=== PATIENT | male | born 1985 | race Caucasian/White ===

== ENCOUNTER 2019-05-10 06:59 | Day surgery (SDC) | payer BC ==
[2019-05-04 16:13] VITALS: BMI 27.1
[~2019-05-10 06:59] MED LIST: DEXAMETHASONE SOD PHOSPHATE 10 MG/ML 1 ML VIAL IV ONE; LACTATED RINGERS 1,000 ML IV SCH; LIDOCAINE 1% 20 ML VIAL (10MG/ML) FOR IV START INTRADERMA PRN; MIDAZOLAM 2 MG/2 ML VIAL IV PRN; ONDANSETRON 4 MG/2 ML VIAL IVP ONE; SCOPOLAMINE 1.5MG/72HR PATCH TRANSDERM ONE; ceFAZolin IN SWFI 2 GM/20 ML SYRINGE IVP ONE
[2019-05-10] MEDS ORDERED: NEOSTIGMINE 1 MG/ML 10 ML VIAL ONE (08:18)
[2019-05-10] MEDS ORDERED: fentaNYL (PF) 50 MCG/ML 2 ML AMP ONE (08:18)
[2019-05-10] MEDS ORDERED: KETAMINE 10 MG/ML 20 ML VIAL ONE (08:18)
[2019-05-10] MEDS ORDERED: SUCCINYLCHOLINE CHLORIDE 100 MG/5 ML SYR IV ONE (08:18)
[2019-05-10] MEDS ORDERED: MIDAZOLAM 2 MG/2 ML VIAL ONE (08:18)
[2019-05-10] MEDS ORDERED: ROCURONIUM BROMIDE 10 MG/ML 10 ML VIAL IV ONE (08:18)
[2019-05-10] MEDS ORDERED: LIDOCAINE 1% INJ 10MG/ML (20 ML MDV) ONE (08:18)
[2019-05-10] MEDS ORDERED: GLYCOPYRROLATE 0.2 MG/ML 2 ML VIAL ONE (08:18)
[2019-05-10] MEDS ORDERED: PROPOFOL 10 MG/ML 20 ML VIAL IV ONE (08:18)
[2019-05-10] MEDS ORDERED: LIDOCAINE 1% INJ 10MG/ML (20 ML MDV) SQ ONE (08:48)
[2019-05-10] MEDS ORDERED: LACTATED RINGERS 1,000 ML IV ONE ×2 (09:07→11:54)
[2019-05-10] MEDS ORDERED: methylPREDNISolone ACETATE 80 MG/ML 1 ML VIAL INJ ONE (09:23)
[2019-05-10] MEDS ORDERED: ONDANSETRON 4 MG/2 ML VIAL IVP ONE (09:37)
[2019-05-10] MEDS ORDERED: BENZOCAINE/MENTHOL LOZENG 1 EACH LOZENGE MUCOUS MEM PRN (09:37)
[2019-05-10] MEDS ORDERED: HYDROmorphone 0.5 MG/0.5 ML SYRINGE IVP PRN (09:37)
[2019-05-10] MEDS ORDERED: HYDROmorphone 1 MG/ML 1 ML SYRINGE IVP PRN (09:37)
[2019-05-10] MEDS ORDERED: HYDROcodone/APAP 5-325MG 1 EACH TAB PO PRN ×2 (09:37)
[2019-05-10] MEDS ORDERED: IBUPROFEN 800 MG TAB PO PRN (09:38)
[2019-05-10] MEDS ORDERED: IBUPROFEN 200 MG TAB PO PRN (09:39)
[2019-05-10 10:07] VITALS: TEMP 98.4
[2019-05-10] MEDS: HYDROmorphone 0.5 MG/0.5 ML SYRINGE IVP PRN ×4 (10:09→10:39)
--- NOTE | 2019-05-10 10:22 | XR ---
Fluoroscopy History: Lumbar laminectomy and discectomy Lumbar Laminectomy discectomy performed by Dr. Temple. 2 sec fl time. 1 image scanned.
[2019-05-10 10:26] VITALS: RESP 16
[2019-05-10] MEDS ORDERED: HYDROcodone/APAP 5-325MG 1 EACH TAB PO ONE (11:49)
[2019-05-10] MEDS ORDERED: hydrALAZINE HCL 20 MG/ML 1 ML VIAL IV ONE (11:49)
[2019-05-10] MEDS ORDERED: KETOROLAC 30 MG/ML 1 ML VIAL IVP SCH (12:00)
[2019-05-10 12:13] VITALS: BP 163/96; PULSE 90
--- NOTE | 2019-05-10 15:50 | OP ---
OPERATIVE REPORT DATE OF SURGERY: 05/10/2019 OPERATIVE NOTE: PREOP DIAGNOSES: 1. Herniated nucleus pulposus, L5-S1. 2. Right lower extremity radiculopathy. 3. Right lower extremity weakness. 4. Foraminal stenosis, L5-S1. 5. Low back pain. 6. Right lower extremity pain. POSTOP DIAGNOSES: 1. Herniated nucleus pulposus, L5-S1. 2. Right lower extremity radiculopathy. 3. Right lower extremity weakness. 4. Foraminal stenosis, L5-S1. 5. Low back pain. 6. Right lower extremity pain. PROCEDURE PERFORMED: 1. Laminectomy decompression L5-S1. 2. Diskectomy for decompression L5-S1. 3. Use of fluoroscopic guidance. SURGEONS: Dr. Temple. ARMATURE BALANCER: PENG [place]. ANESTHESIA: General anesthesia. COMPLICATIONS: None apparent. ESTIMATED BLOOD LOSS: Approximately 30 mL. SPECIMEN: None. FLUOROSCOPY: Time is approximately 10 seconds. COMPLICATIONS: None apparent. DISPOSITION: Is to recovery room in good stable condition. OPERATIVE INDICATIONS: The patient is a 33-year-old male who has been having severe back pain and lower extremity pain for the past 3 years, however, he has been having significant worsening over the past several months. He has been having significant disability with activities and ability to ambulate with pain particularly down his right lower extremity over an S1 distribution. He was noting some increased pain and some weakness in his right lower extremity as well. He continued to have pain over right lower extremity S1 distribution. He had been through extensive conservative treatment with therapy, medications and interventional pain management. However, was not having lasting benefit despite aggressive conservative care. Different treatment options including surgical intervention were explained to him. Risks and complications of surgery including, but not limited to risk of bleeding, risk of infection, risk of need for further surgery, risk of decreased loss of motion, loss of function/function, dural tear, nerve damage, paralysis, heart attack and blindness, , as well as the fact that surgery may not alleviate his symptoms, were explained to him at length. All his questions were answered to the best of our ability in language he could understand. Patient elected to proceed with surgical intervention. Signed informed consent. OPERATIVE SUMMARY: After obtaining informed consent, evaluation by anesthesia, preop medical and evaluation and clearance, the patient was identified in preoperative Holding Area and surgical site was marked. He was given prophylactic IV antibiotics, brought to the operating and was sedated, intubated by anesthesia in standard fashion without any complications. Once the airway and C-spine were secured, he was gently rolled into prone position onto a well-padded, well molded Ray frame being careful to pad any bony prominences, pressure points keeping his head and neck in good neutral alignment and position. Once he is well positioned on the table. His back was prepped and draped in normal standard fashion, appropriate protocol. Appropriate time-out was completed. We were able to proceed with surgery. The C-arm guidance was utilized to establish appropriate level at L5-S1. A skin incision was made approximately 2-1/2 cm in length over the L5-S1 space at the midline. Dissection taken down to the fascia which was split in midline and taken down further to the inner laminar space at L5-S1. The intraoperative C-arm was again utilized to establish appropriate level and with the appropriate level positively confirmed with a marker at the L5-S1 interlaminar space, I was able to proceed with a laminectomy. Laminectomy was performed with combination of curette and Kerrison rongeurs and a high-speed bur. The ligamentum flavum was also taken down as well as a small portion of the medial facet to gain further access to the epidural space and the disc space. I was careful to maintain good stability without causing instability or removal of the entire facet. A portion of the ligamentum flavum was taken down. There was significant fatty tissue which was cauterized with bipolar cauterization and I was able to expose the dura and the traversing nerve roots. Note was made of obvious compression and distortion of the traversing nerve root. There was significant scar formation along the traversing nerve root as well. It was quite difficult to mobilize the nerve root and to free up the scar tissue from the disc itself. There was evidence of a large extruded disc fragment and a rent at the right paracentral area of the disc itself. I was able to establish an annulotomy and remove significant loose disc and loose disc fragments. We took meticulous care to free up the nerve root from the scar tissue around the disc and I was able to do that and remove any extruded disc and significant disc material that was loose within the disc itself. Any stable fragments of disc and anulus were left intact. The nerve root was freely mobile without any further evidence of compression or distortion. Any disc fragments and loose fragments were removed. There was no evidence of any dural tear or leak, and good hemostasis was maintained. With the nerve root freely mobile and good decompression noted with no further loose fragments, we we able to proceed with closure. The wound was copiously irrigated and suctioned dry as it had been done periodically throughout the case. The peridural area was infiltrated with 40 mg of Depo-Medrol. The fascial layer was closed with #1 Vicryl. Subcutaneous tissue was closed with 2-0 Vicryl. Subcuticular tissue was closed with 4-0 Vicryl. Wound is clean, dry, dressed with Mastisol, Steri-Strips, Telfa, and Tegaderm. The drapes were broken down. Patient was gently rolled back supine position onto his stretcher, woken up by anesthesia, extubated appropriately and brought to recovery room in good stable condition where he will be able to be discharged home today once he meets appropriate discharge instructions and discharge status after the postanesthesia care unit. He is given appropriate discharge instructions and we will plan to see him back in approximately 2 weeks time for recheck evaluation or sooner if he is having any problems. MMODL / IJN: [id number] /
[2019-05-10] MEDS ORDERED: ceFAZolin IN SWFI 2 GM/20 ML SYRINGE IVP SCH (16:00)
[2019-05-11] MEDS ORDERED: FLUoxetine HCL 20 MG CAP PO SCH (09:00)
== END 2019-05-10 12:17 | disposition home or self-care (01) ==
LOC: OR 06:59
PROVIDERS: ATTEND Orthopaedic Surgery Orthopaedic Surgery of the Spine
DX: M51.17 Intervertebral disc disorders with radiculopathy, lumbosacral region (principal); M48.07 Spinal stenosis, lumbosacral region; I10 Essential (primary) hypertension; F32.9 Major depressive disorder, single episode, unspecified; F17.210 Nicotine dependence, cigarettes, uncomplicated; Z97.2 Presence of dental prosthetic device (complete) (partial); Z79.1 Long term (current) use of non-steroidal anti-inflammatories (NSAID); Z79.891 Long term (current) use of opiate analgesic; Z79.899 Other long term (current) drug therapy; Z97.3 Presence of spectacles and contact lenses
CPT/HCPCS: 63030; 72020; J2250; J0360; J1040; J2710; J2405; J2001; J3010; J1885; J0330; J2704; J1170; J0690

== ENCOUNTER 2019-07-17 12:55 | Day surgery (SDC) | payer BC ==
[~2019-07-17 12:55] MED LIST changes: +BACITRACIN 50,000 UNIT, POLYMYXIN B 500,000 UNIT in SODIUM CHLORIDE 0.9% IRRIGATIO 1,00... IRRIGATION ONE; -DEXAMETHASONE SOD PHOSPHATE 10 MG/ML 1 ML VIAL IV ONE; -LACTATED RINGERS 1,000 ML IV SCH; -LIDOCAINE 1% 20 ML VIAL (10MG/ML) FOR IV START INTRADERMA PRN; -MIDAZOLAM 2 MG/2 ML VIAL IV PRN; -ONDANSETRON 4 MG/2 ML VIAL IVP ONE; -SCOPOLAMINE 1.5MG/72HR PATCH TRANSDERM ONE; -ceFAZolin IN SWFI 2 GM/20 ML SYRINGE IVP ONE
[2019-07-17] MEDS ORDERED: LACTATED RINGERS 1,000 ML IV ONE ×3 (13:50→15:28)
[2019-07-17] MEDS ORDERED: LIDOCAINE 1% 20 ML VIAL (10MG/ML) FOR IV START INTRADERMA ONE (13:50)
[2019-07-17] MEDS ORDERED: fentaNYL (PF) 50 MCG/ML 2 ML AMP IVP ONE (13:51)
[2019-07-17] MEDS ORDERED: ONDANSETRON 4 MG/2 ML VIAL IVP ONE (13:51)
[2019-07-17] MEDS ORDERED: MIDAZOLAM (PF) 2 MG/2 ML VIAL IVP ONE ×2 (13:56)
[2019-07-17] MEDS ORDERED: ROCURONIUM BROMIDE 10 MG/ML 10 ML VIAL IV ONE (14:40)
[2019-07-17] MEDS ORDERED: DEXAMETHASONE SOD PHOS (MDV) 100 MG/10 ML VIAL ONE (14:40)
[2019-07-17] MEDS ORDERED: NEOSTIGMINE 1 MG/ML 10 ML VIAL ONE (14:40)
[2019-07-17] MEDS ORDERED: PROPOFOL 10 MG/ML 20 ML VIAL IV ONE (14:40)
[2019-07-17] MEDS ORDERED: MIDAZOLAM 2 MG/2 ML VIAL ONE (14:40)
[2019-07-17] MEDS ORDERED: LIDOCAINE 1% INJ 10MG/ML (20 ML MDV) ONE (14:40)
[2019-07-17] MEDS ORDERED: GLYCOPYRROLATE 0.2 MG/ML 2 ML VIAL ONE (14:40)
[2019-07-17] MEDS ORDERED: fentaNYL (PF) 50 MCG/ML 2 ML AMP ONE (14:40)
[2019-07-17] MEDS ORDERED: SUCCINYLCHOLINE CHLORIDE 100 MG/5 ML SYR IV ONE (14:40)
[2019-07-17] MEDS ORDERED: KETAMINE 10 MG/ML 20 ML VIAL ONE (14:40)
[2019-07-17] MEDS ORDERED: LIDOCAINE 0.5%-EPI 1:200,000 50 ML VIAL SQ ONE (15:19)
[2019-07-17] MEDS ORDERED: THROMBIN (BOVINE) 5,000 UNIT VIAL TOPICAL ONE (15:23)
[2019-07-17] MEDS ORDERED: GELATIN SPONGE,ABSORB (LARGE) 1 EACH SPONGE TOPICAL ONE (15:23)
[2019-07-17] MEDS ORDERED: methylPREDNISolone ACETATE 80 MG/ML 1 ML VIAL INJ ONE (15:38)
[2019-07-17] MEDS ORDERED: KETOROLAC 30 MG/ML 1 ML VIAL IVP PRN (15:55)
[2019-07-17] MEDS ORDERED: HYDROcodone/APAP 5-325MG 1 EACH TAB PO PRN ×3 (15:55→15:56)
[2019-07-17] MEDS ORDERED: HYDROmorphone 0.5 MG/0.5 ML SYRINGE IVP PRN (15:55)
[2019-07-17] MEDS ORDERED: HYDROmorphone 1 MG/ML 1 ML SYRINGE IVP PRN (15:55)
[2019-07-17] MEDS ORDERED: BENZOCAINE/MENTHOL LOZENG 1 EACH LOZENGE MUCOUS MEM PRN (15:55)
[2019-07-17] MEDS ORDERED: ONDANSETRON 4 MG/2 ML VIAL IVP PRN (15:55)
[2019-07-17] MEDS ORDERED: DIAZEPAM 5 MG TAB PO PRN (15:56)
[2019-07-17] MEDS ORDERED: IBUPROFEN 600 MG TAB PO PRN (15:56)
[2019-07-17] MEDS ORDERED: SODIUM CHLORIDE 0.9% 1,000 ML IV SCH (16:00)
--- NOTE | 2019-07-17 16:04 | P.OP ---
Date of Procedure: 07/17/19 Preoperative Diagnosis: Recurrent herniated nucleus pulposus L5-S1, severe right lower extremity radiculopathy, right lower extremity weakness, history of laminectomy decompression and discectomy L5-S1 Postoperative Diagnosis: Same Anesthesia: GETA Pathology: none sent Condition: stable Disposition: PACU Description of Procedure: BRIEF OPERATIVE NOTE Preoperative Diagnosis:Recurrent herniated nucleus pulposus L5-S1, severe right lower extremity radiculopathy, right lower extremity weakness, history of laminectomy decompression and discectomy L5-S1 Postoperative Diagnosis:Recurrent herniated nucleus pulposus L5-S1, severe right lower extremity radiculopathy, right lower extremity weakness, history of laminectomy decompression and discectomy L5-S1 Procedure: Revision Laminectomy and decompression L5-S1 Revision Discectomy for decompression L5-S1 Use of fluoroscopic guidance Surgeon: Dr. Temple Registered Nurse Float Pool: Domenic KHOURY who is present throughout the entire the case persistence during positioning, dissection, exposure, visualization, and all crucial elements of the case as well as closure. Anesthesia: General anesthesia per Dr. Palacio Estimated blood loss: Approximately 50 mL Complications: None apparent Components implanted: None Disposition: To recovery room in good stable condition. OPERATIVE INDICATIONS The patient has been having severe issues in their lower back and lower extremities on the right side. He's been having profound debility due to the pain over the past 2 weeks without any resolution despite conservative management. He's has weakness in his right lower extremity as well. He had undergone laminectomy decompression and discectomy for large extruded disc herniation at L5-S1 several months ago and after that surgery initially did well. He was having significant relief of his symptoms and improvement in his lower extremity symptoms. However over the past couple weeks she has been having worsening symptoms and has been having profound troubles over the past week. He had aggressive conservative care and underwent repeat imaging of his lumbar spine which showed recurrent disc herniation with severe right foraminal stenosis which correlate well with his back and lower extremity pain . The patient has been through conservative treatment. He was unable to perform any activities and had great difficulty with even trying to ride in a car sit or trying to get comfortable at home. We discussed various treatment options including surgery, and the patient wishes to proceed with surgery We discussed the risk, patient's alternatives and benefits of surgery including but not limited to, risk of bleeding risk of infection, risk of need for further surgery, risk of decreased, loss of motion, loss of function, nerve damage, paralysis, heart attack, blindness and . OPERATIVE SUMMARY After discussing all the risks, patient alternatives and benefits at length, the patient elected to proceed with surgical intervention, signed informed consent, and presented for their procedure. The patient was seen and examined in the preoperative holding area and the surgical site was marked. The patient was given antibiotics and brought to the operating room. The patient was sedated and intubated by anesthesia in standard fashion. The patient was positioned on to the operating room table in a prone position on the appropriate frame which was well-padded and well molded. We were careful to pad any bony prominences and pressure points. We were careful to maintain the pat ient's cervical spine and good neutral alignment and position throughout. The patient was prepped and draped in a normal standard fashion. An appropriate timeout and keystone protocol performed. We were able to proceed with the surgery. Fluoroscopy was utilized to establish the appropriate level. The local wound area was infiltrated with local anesthetic. An incision was made at the midline longitudinally over the appropriate levels of L5-S1 utilizing the prior incision at that level and extending it a small amount cephalad.. Dissection was taken down subcutaneously to the level of the fascia which was split midline. Dissection was taken over the lamina. Intraoperative fluoroscopy was taken which showed a marker at the appropriate level at L5-S1. With the appropriate level positively confirmed, we were able to proceed with laminectomy. There was some scar tissue formation at the L5-S1 interlaminar space which had been meticulously be taken down. The wound was copiously irrigated and suctioned dry as had been done periodically throughout the case. I performed a laminectomy with a combination of curettes and a high- speed bur and Kerrison rongeurs. I extended the A small medial facetectomy again to enable further access. A partial foraminotomy was also performed. I was careful not to remove the significant portion of the facet joint to maintain some stability at the level. I had to take down portions of scar tissue at the intralaminar space. Portions of the ligamentum flavum were taken down to expose the dura and traversing nerve root. There was significant tension at the dura and I was able to try to mobilize the dura and the traversing nerve root away from the scar tissue. I was able to mobilize the traversing nerve root and gain access to the disc space. Note was made of obvious compression from the disc. There is evidence of very large extruded disc fragments. Portions of cartilaginous endplate had been extruded and a massive portion of fibrocartilage had extruded as well which was contributing to the severe stenosis. I was able to remove these large portions of extruded disc material which gave excellent relief of the tension at the ner ve root and dura. Protecting the soft tissue structures, I was able to gain access to the remainder of the interbody body disc area through the prior establish annulotomy and disc rent. I was able to perform discectomy and remove any extruded disc fragments and any loose fragments from within the disc itself. There is some significant disc loss noted. I tried to preserve the disc annulus that appeared stable. There were no further extruded fragments noted. There is no evidence of dural tear or leak. Good hemostasis maintained. The wound was copiously irrigated and suctioned dry. Good decompression and discectomy was noted. We were able to proceed with closure. The fascia was closed for a watertight closure. The subcuticular tissue was closed with absorbable suture. The wound was cleaned and dried and dressed with the appropriate dressing. The drapes were broken down. The patient was gently rolled back onto their hospital bed being careful to maintain their cervical spine and good neutral alignment and position. They were woken up by anesthesia, extubated, and brought to the recovery room in good stable condition. The patient will be admitted to the hospital for observation and for appropriate postoperative care, medical management and monitoring. We will continue to follow them closely about the postoperative course.
--- NOTE | 2019-07-17 16:05 | FL ---
Fluoroscopy History: needle placement Needle placement. 3 secs fluoro. 1 image scanned.
[2019-07-17 16:18] VITALS: RESP 16; TEMP 97.5
[2019-07-17] MEDS: hydrALAZINE HCL 20 MG/ML 1 ML VIAL IVP ONE ×2 (16:40→17:20)
[2019-07-17] MEDS ORDERED: ENALAPRILAT 1.25 MG/ML 1 ML VIAL IVP ONE (17:07)
[2019-07-17] MEDS: HYDROmorphone 1 MG/ML 1 ML SYRINGE IVP ONE ×2 (17:20→17:25)
[2019-07-17] MEDS ORDERED: DIAZEPAM 5 MG TAB PO STA (18:31)
[2019-07-17] MEDS ORDERED: DIAZEPAM 5 MG TAB PO ONE (18:34)
[2019-07-17] MEDS ORDERED: hydrALAZINE HCL 20 MG/ML 1 ML VIAL IVP ONE (19:08)
[2019-07-17] MEDS ORDERED: LABETALOL 5 MG/ML VIAL MDV IVP ONE ×2 (19:30→19:31)
[2019-07-17 19:36] VITALS: BP 141/90; PULSE 100
[2019-07-18] MEDS ORDERED: FLUoxetine HCL 20 MG CAP PO SCH (09:00)
[2019-07-18] MEDS ORDERED: SENNOSIDES-DOCUSATE SODIUM 1 EACH TAB PO SCH (09:00)
== END 2019-07-17 19:46 | disposition home or self-care (01) ==
LOC: OR 12:55
PROVIDERS: ATTEND Orthopaedic Surgery Orthopaedic Surgery of the Spine
DX: M51.17 Intervertebral disc disorders with radiculopathy, lumbosacral region (principal); M48.061 Spinal stenosis, lumbar region without neurogenic claudication; Z72.0 Tobacco use; Z79.1 Long term (current) use of non-steroidal anti-inflammatories (NSAID); Z79.891 Long term (current) use of opiate analgesic; Z79.899 Other long term (current) drug therapy
CPT/HCPCS: 63030; J2250 ×2; J0360; J1040; J2710; J0690; J2405; J2001; J3010; J1170; J1100; J0330; J2704